=== PATIENT | male | born 1990 | race Caucasian/White ===

== ENCOUNTER 2018-09-04 07:52 | Emergency (ER) | payer BC, SELFPAY ==
[2018-09-04 07:53] VITALS: BP 147/90; PULSE 69; RESP 17; TEMP 36; O2SAT 95; BMI 33.9
--- NOTE | 2018-09-04 08:07 | ED.VISSUMM ---
- ER Visit Summary Date of Service: 09/04/18 Chief Complaint: Tick bite History of Present Illness: The patient is a 27 M who presents with a tick bite to his right lower abdomen that he noticed this morning. Patient states he did not notice it while he was in the shower this morning but noticed it while he was on his way to work. Patient states the pain is a stinging pain. Patient states it is worse with sitting in certain positions. Patient denies any fevers or chills. Patient denies any discharge or drainage. Physical Examination: Vital signs are stable. Patient is afebrile. Patient is in no acute distress. Oral mucosa is pink and moist. Heart was regular rate and rhythm. Lungs are clear and equal bilaterally. Abdomen is soft and nontender. Skin is warm dry. There is a tick noted in the right lower abdomen. There is some slight erythema surrounding the bite. The remaining physical exam is within normal limits. Emergency Department Course and Treatment: There was cleaned with alcohol prep pad. The tick was removed with direct pressure using hemostats. Patient tolerated the procedure well. Patient was instructed to keep the wound clean. Patient was instructed to follow-up with his primary care physician in 5-7 days. Patient understood and was agreeable with the plan. All questions were answered. Disposition: Discharge home Impression: Tick bite This note was generated with [employer] dictation software. It may contain incorrect words, spelling, and punctuation that were not noted in review of the chart prior to signing ED Disposition - Plan for ED Patient: Disposition: Home or Assisted Living Diagnosis: Tick bite of abdominal wall Instructions: ED Bite Tick No Abx Tx Referrals: Care Physician,No Primary [Primary Care Provider] -
--- NOTE | 2018-09-04 08:15 | ED.RN ---
REMOVAL OF TICK FROM RLQ ABDOMEN.
== END 2018-09-04 08:34 | disposition home or self-care (01) ==
PROVIDERS: Emergency Provider Emergency Medicine
DX: S30.861A Insect bite (nonvenomous) of abdominal wall, initial encounter (principal); W57.XXXA Bitten or stung by nonvenomous insect and other nonvenomous arthropods, initial encounter; Y93.9 Activity, unspecified; Y92.9 Unspecified place or not applicable
CPT/HCPCS: 99282

== ENCOUNTER 2019-08-08 19:29 | Emergency (ER) | payer BC, SELFPAY ==
[2019-08-08 19:30] VITALS: BP 126/61; PULSE 79; RESP 16; TEMP 36.9; O2SAT 97; BMI 75.5
--- NOTE | 2019-08-08 19:39 | EKG12_ITS ---
Test Reason : HEADINJURY Blood Pressure : / mmHG Vent. Rate : 080 BPM Atrial Rate : 080 BPM P-R Int : 144 ms QRS Dur : 086 ms QT Int : 356 ms P-R-T Axes : 016 042 014 degrees QTc Int : 410 ms Normal sinus rhythm Normal ECG Confirmed by FAWAD SANCHEZ, JESSIE ([id number]), editorial manager AIDAN POST ([id number]) on 08/09/2019 1:42:14 PM Referred By: DC/ES Confirmed By:JESSIE CELESTIN MD
--- NOTE | 2019-08-08 19:39 | CT_ITS ---
STUDY: CT BRAIN WITHOUT CONTRAST REASON FOR EXAM: Male, 28 years old. FELL IN HIT HEAD +LOC, LAC TOP OF HEAD, BOTTOM LIP RADIATION DOSAGE (If Supplied By Facility): CTDIvol = ( 44.99 ) mGy, DLP = ( 796.11 ) mGycm TECHNIQUE: Transaxial CT imaging of the brain was performed without administration of intravenous contrast material. Individualized dose optimization techniques were used for this CT. COMPARISON: No relevant priors. FINDINGS: Normal soft tissue structures. Normal calvarium. Normal size ventricles and extra-axial spaces for the patient''s age. Normal white matter tracts of the cerebral hemispheres. Normal basal ganglia and thalami. Normal brainstem. Normal cerebellum. There is no intracranial hemorrhage. There are no findings of an acute ischemic infarction. Large mucous retention cyst in right maxillary sinus. Minor mucosal thickening in right ethmoid air cells CT/Brain/Head without Contrast IMPRESSION: Normal unenhanced CT scan of the brain. Right maxillary and ethmoid sinus disease Electronically Signed: Hugo Foy MD at 20:09 EDT , Service support ,
--- NOTE | 2019-08-08 19:42 | ED.RN ---
NO OLD EKGS IN MUSE
[2019-08-08] MEDS: Diphth,Pertuss(Acell),Tet Vac 0.5 ML Vial IM (19:49)
[2019-08-08 20:21] LABS: Absolute Lymphocyte Count 3.21 X10^3/uL (0.83-4.51); Absolute Neutrophil Count 5.9 X10^3/uL (2.0-7.7); Basophil# 0.07 X10^3/uL; Basophil% 0.7 % (0-1); Eosinophil# 0.18 X10^3/uL; Eosinophils% 1.7 % (0-5); Hematocrit 47.8 % (40-54); Hemoglobin 16.3 g/dL (13.0-16.5); Lymphocyte # 3.21 X10^3/ul (4.0); Lymphocyte % 30.3 % (19-41); Mean Corp Hgb Conc 34.1 g/dL (32-36); Mean Corpuscular Hgb 30.8 pg (27.0-32.0); Mean Corpuscular Volume 90.4 fL (80-94); Mean Platelet Vol. 10.4 fl (6.2-12.0); Monocyte# 1.22 X10^3/uL; Monocyte% 11.5 % (0-10); NRBC Flagged by Analyzer 0 % (0-5); Neutrophil % 55.5 % (47-70); Platelet Count 287 K/mm3 (150-450); RBC Distribution Width CV 11.9 % (11.6-14.6); RBC Distribution Width SD 38.8 fl (35.1-43.9); Red Blood Count 5.29 M/mm3 (4.6-6.2); White Blood Count 10.6 K/mm3 (4.4-11.0)
[2019-08-08 20:30] LABS: Anion Gap 9 (5-15); BUN 13 mg/dL (7-18); BUN/Creat Ratio 11.2 RATIO (10-20); Calcium,Total 8.9 mg/dL (8.5-10.1); Chloride 107 mmol/L (98-107); Creatinine, Serum 1.16 mg/dL (0.70-1.30); EST Glomerular Filtration Rate 80 mL/min (>60); Est Glom Filt Rate - Afr Amer 97 mL/min (>60); Estimated Creatinine Clearance 87.08 ml/min; Glucose 88 mg/dL (74-106); Potassium 3.1 mmol/L (3.5-5.1); Sodium Level 143 mmol/L (136-145)
--- NOTE | 2019-08-08 21:12 | ED.VISSUMM ---
- ER Visit Summary Date of Service: 08/08/19 Chief Complaint: Passed out History of Present Illness: The patient is a 28 M who passed out at home. He hit his foot when he dropped a can and he bumped his head. He saw blood and passed out. He had a brief shaking episode and then regained consciousness spontaneously. He had this happen before once when he saw zone blood. He did not have incontinence or tongue biting. No prior history of seizures. No other significant medical history. Physical Examination: Afebrile and vital signs unremarkable. There is an abrasion to the top of his head. He has a lower lip abrasion as well. Otherwise his head and neck are atraumatic and nontender. Heart regular. Lungs clear. Abdomen soft. No focal or lateralizing neurologic abnormalities grossly. Test Results: EKG showed sinus rhythm at a rate of 80. No sign of ischemia or infarction pattern. CBC normal. BMP shows a potassium 3.1. Troponin normal. CT brain showed nothing acute. Emergency Department Course and Treatment: Patient likely had a syncopal episode. I do not believe this was a seizure. It was provoked. He did not have any other seizure activity. He had a similar episode in the past. Work-up, as above, was unremarkable. Wounds were cleaned. They did not require sutures. Tetanus was updated. Patient was doing well on reevaluation he discharged home. He was given seizure and syncope precautions. His potassium was 3.1. This was repleted. He will follow-up with his doctor for recheck. Treatment Plan: As above Disposition: Discharge Impression: Syncope, closed head injury, hypokalemia This note was generated with [employer] dictation software. It may contain incorrect words, spelling, and punctuation that were not noted in review of the chart prior to signing ED Disposition - Plan for ED Patient: Referrals: Ben Camacho MD [Primary Care Provider] -
--- NOTE | 2019-08-08 21:15 | ED.DEP ---
ED Disposition - Plan for ED Patient: Instructions: ED VAGAL SYNCOPE Referrals: Bne Camacho MD [Primary Care Provider] -
== END 2019-08-08 21:23 | disposition home or self-care (01) ==
PROVIDERS: Emergency Provider Emergency Medicine; PCP Family Medicine
DX: R55 Syncope and collapse (principal); S00.01XA Abrasion of scalp, initial encounter; S00.511A Abrasion of lip, initial encounter; W22.8XXA Striking against or struck by other objects, initial encounter; Y93.89 Activity, other specified; Y92.009 Unspecified place in unspecified non-institutional (private) residence as the place of occurrence of the external cause; E87.6 Hypokalemia
CPT/HCPCS: 36415; 70450; 80048; 84484; 85025; 90471; 90715; 93005; 99284; A4216

== ENCOUNTER 2024-04-12 09:48 | Emergency (ER) | payer BC, SELFPAY ==
[2024-04-12 09:49] VITALS: BP 127/90; PULSE 74; RESP 16; TEMP 37; O2SAT 98; BMI 36.6
--- NOTE | 2024-04-12 10:16 | CT_ITS ---
STUDY: CT BRAIN WITHOUT CONTRAST REASON FOR EXAM: Male, 33 years old. syncope RADIATION DOSAGE (If Supplied By Facility): CTDIvol = ( 44.99 ) mGy, DLP = ( 829.85 ) mGycm TECHNIQUE: Transaxial CT imaging of the brain was performed without administration of intravenous contrast material. Individualized dose optimization techniques were used for this CT. COMPARISON: No relevant priors. FINDINGS: Normal soft tissue structures. Normal calvarium. Normal size ventricles and extra-axial spaces for the patient''s age. Normal white matter tracts of the cerebral hemispheres. Normal basal ganglia and thalami. Normal brainstem. Normal cerebellum. There is no intracranial hemorrhage. There are no findings of an acute ischemic infarction. Right maxillary sinus retention cyst. CT/Brain/Head without Contrast IMPRESSION: Normal unenhanced CT scan of the brain. Electronically Signed: Cortez Herrera DO at 11:09 EST ,
--- NOTE | 2024-04-12 10:17 | RAD_ITS ---
INDICATION: syncope EXAMINATION/TECHNIQUE: X-RAY - XR Chest 2 Views COMPARISON: April 10, 2016 FINDINGS: LINES/DEVICES: None. LUNGS: No consolidation, edema or effusion. No pneumothorax. MEDIASTINUM AND CARDIOVASCULAR STRUCTURES: Cardiac silhouette not enlarged. Central airways and mediastinal contour are unremarkable. BONES AND SOFT TISSUES: Unremarkable. RAD/Chest PA and Lateral IMPRESSION: No radiographic evidence of acute cardiopulmonary disease. Electronically Signed: Cortez Herrera DO at 11:12 [facility] ,
--- NOTE | 2024-04-12 10:18 | EX.ED.DYSGE1 ---
HPI History of Present Illness Chief Complaint: Syncope Narrative Narrative: Chief complaint and HPI: Syncope. 33-year-old male with no significant past medical history presents for evaluation after a syncopal episode. Patient states that this morning he woke up with a charley horse in his left calf. He states that he quickly rolled out of bed and jumped over a dog gate. He states immediately after he got lightheaded, stumbled, fell into the wall, and woke up on the ground. Significant other witnessed event. Patient was unconscious for multiple seconds before regaining consciousness. He is unsure if he hit his head. He denies any fever, chills, URI symptoms, neck pain, vision changes, headache, chest pain, shortness of breath, abdominal pain, nausea, vomiting, diarrhea, dysuria. Patient states he last ate 12 hours ago prior to the episode. He states he has been eating and drinking well. Patient states that he has had syncope in the past with unknown cause. Denies any weakness numbness or tingling. Denies any leg swelling, recent surgery, travel. Review of systems: See HPI Medications: As listed on the chart Allergies: As listed on the chart PFSH: Per chart Vital signs: As listed on the chart. Reviewed. Physical exam: Gen: A&O x3, NAD Head: Normocephalic, atraumatic Eyes: No sclera icterus, conjunctiva clear, PERRL, EOMI ENT: Moist mucous membranes, no facial trauma Neck: Trachea midline, No JVD, full range of motion, nontender CV: RRR, no murmurs, no peripheral edema Resp: Lungs CTA BL, no w/r/c GI: Abd soft, non-distended, non-tender, no r/r/g Musc: Full ROM, no deformity, strength +5/5 in all extremities Skin: Warm, dry, intact Neuro: Alert, oriented, grossly intact, sensation intact, no focal deficits Psych: Cooperative, appropriate mood and affect [facility] Home Medications ?Medication ?Instructions ?Recorded ?Last Taken ?Type NK 09/04/18 Unknown History Allergy/AdvReac Type Severity Reaction Status Date / Time No Known Allergies Allergy Verified 04/12/24 09:49 Social History Smoking Status: Never smoker EXAM Physical Exam Const Vital Signs: 04/12/24 09:49 04/12/24 10:29 04/12/24 10:38 Temperature 98.6 F Temperature Source Oral Pulse Rate 74 Pulse Rate [Lying] 67 Pulse Rate [Sitting (for 1 minute prior to obtaining)] 66 Pulse Rate [Standing (for 1 minute prior to obtaining)] 86 Respiratory Rate 16 Respiratory Pattern Normal Blood Pressure 127/90 H Blood Pressure [Lying] 122/70 H Blood Pressure [Sitting (for 1 minute prior to obtaining)] 119/78 Blood Pressure [Standing (for 1 minute prior to obtaining)] 112/75 Blood Pressure Mean 102 Blood Pressure Mean [Lying] 87 Blood Pressure Mean [Sitting (for 1 minute prior to obtaining)] 91 Blood Pressure Mean [Standing (for 1 minute prior to obtaining)] 87 Pulse Ox 98 Oxygen Delivery Method Room Air MDM MDM MDM Narrative Medical decision making narrative: 33-year-old male with no significant past medical history presents for evaluation of syncopal episode. Differential diagnosis includes but is not limited to orthostatic hypotension, vasovagal episode, dehydration, electrolyte abnormality, hypoglycemia. Suspect less likely intracranial abnormality, ACS, PE. Patient is currently asymptomatic. Vitals are stable. No complaints. Syncope workup ordered. EKG and chest x-ray reviewed see below. CBC without leukocytosis or anemia. D-dimer unremarkable. BMP relatively unremarkable. Troponin unremarkable. Given that patient is not having any chest pain I do not see a reason for delta. UA shows some ketones which can be seen in mild dehydration. Otherwise unremarkable. CT head without any acute abnormality. At this point in time, no clear etiology for patient's symptoms. May be secondary to mild dehydration with quick movement. May have been a vasovagal response. Patient was updated of all his results. He is currently asymptomatic. Ambulated without difficulty. Patient is stable to discharge home. Follow-up with PCP. Return precautions explained. EKG: Interpreted by me/EM physician: Normal sinus rhythm with premature complexes. Heart rate 79. No acute ischemic changes. Diagnostic: Interpreted by me/EM physician: Chest x-ray without pneumonia, effusion, cardiomegaly, pneumothorax Impression: 1. Syncope 2. Mild dehydration Lab Data Labs: Laboratory Results - last 24 hr 04/12/24 04/12/24 10:25 10:47 WBC 8.4 RBC 5.42 Hgb 16.5 Hct 47.1 MCV 86.9 MCH 30.4 MCHC 35.0 RDW Std Deviation 37.4 RDW Coeff of [place]so[place] 11.8 Plt Count 302 MPV 9.9 Immature Gran % (Auto) 0.200 Neut % (Auto) 73.2 H Lymph % (Auto) 16.8 L Cata[place] % (Auto) 8.0 Eos % (Auto) 1.2 Baso % (Auto) 0.6 Absolute Neuts (auto) 6.1 Absolute Lymphs (auto) 1.40 Nucleated RBC % 0 D-Dimer Quant (PE/DVT) < 0.27 L Sodium 135 L Potassium 4.0 Chloride 106 Carbon Dioxide 24.0 Anion Gap 6 BUN 11 Creatinine 1.13 Estim Creat Clear Calc 102.91 Est GFR (MDRD) Af Amer 97 Est GFR (MDRD) Non-Af 80 BUN/Creatinine Ratio 9.7 L Glucose 119 H Calcium 9.0 Troponin I High Sens 3 Urine Color Yellow Urine Clarity Clear Urine pH 6.5 Ur Specific [place] 1.005 Urine Protein Negative Urine Glucose (UA) Normal Urine Ketones 5 H Urine Occult Blood Negative Urine Nitrite Negative Urine Bilirubin Negative Urine Urobilinogen Normal Ur Leukocyte Esterase Negative Urine RBC 0 SEEN Urine WBC 0 SEEN Ur Squamous Epith Cells 0 SEEN Urine Bacteria 0 SEEN Urine Mucus 0 SEEN Radiography Diagnostic Testing: Clinical Impression(s) from Imaging Studies Brain CT 04/12/24 10:16 IMPRESSION: Normal unenhanced CT scan of the brain. Electronically Signed: Cortez Herrera DO at 11:09 EST Reading Location ID and State: [facility] / [place] Tel [phone], Service support , Chest X-Ray 04/12/24 10:17 IMPRESSION: No radiographic evidence of acute cardiopulmonary disease. Electronically Signed: Cortez Herrera DO at 11:12 EST , Discharge Plan Triage Chief Complaint: Syncope ED Provider: Joaquim Wilson Dx/Rx/DC Orders Prescriptions: No Action NK Primary Care Provider: Ben Camacho Referrals: Ben Camacho MD [Primary Care Provider] - Print Language: Lao
[2024-04-12 10:33] LABS: Absolute Neutrophil Count 6.1 X10^3/uL (2.0-7.7); Basophil# 0.05 X10^3/uL; Basophil% 0.6 % (0-1); Eosinophils% 1.2 % (0-5); Hematocrit 47.1 % (40-54); Hemoglobin 16.5 g/dL (13.0-16.5); Lymphocyte % 16.8 % (19-41); Mean Corpuscular Hgb 30.4 pg (27.0-32.0); Mean Corpuscular Volume 86.9 fL (80-94); Mean Platelet Vol. 9.9 fl (6.2-12.0); Monocyte# 0.67 X10^3/uL; NRBC Flagged by Analyzer 0 % (0-5); Neutrophil # 6.11 X10^3/uL (2.7-7.7); Neutrophil % 73.2 % (47-70); Platelet Count 302 K/mm3 (150-450); RBC Distribution Width CV 11.8 % (11.6-14.6); RBC Distribution Width SD 37.4 fl (35.1-43.9); Red Blood Count 5.42 M/mm3 (4.6-6.2); White Blood Count 8.4 K/mm3 (4.4-11.0)
[2024-04-12 10:38] VITALS: BP 112/75; BP 119/78; BP 122/70; PULSE 66; PULSE 67; PULSE 86
[2024-04-12 10:47] LABS: D-Dimer Quantitative (DVT/PE) < 0.27 FEU/ug/m (0.27-0.49)
[2024-04-12 10:51] LABS: Bacteria 0 SEEN /hpf (None Seen); Mucous, Urine 0 SEEN /hpf (<or=2+); Red Blood Cells-Urine 0 SEEN /hpf (0-5); Squamous Epithelial Cells - UA 0 SEEN /hpf (0-5); White Blood Cells 0 SEEN /hpf (0-5)
[2024-04-12 10:57] LABS: Anion Gap 6 (5-15); BUN 11 mg/dL (7-18); BUN/Creat Ratio 9.7 RATIO (10-20); Chloride 106 mmol/L (98-107); Creatinine, Serum 1.13 mg/dL (0.70-1.30); EST Glomerular Filtration Rate 80 mL/min (>60); Est Glom Filt Rate - Afr Amer 97 mL/min (>60); Estimated Creatinine Clearance 102.91 ml/min; Glucose 119 mg/dL (74-106); Sodium Level 135 mmol/L (136-145); Troponin-I HS 3 pg/mL (3.0-78.0)
[2024-04-12 11:11] LABS: Color, Urine Yellow (Yellow); Glucose, Dipstick Normal (Normal); Ketone-Dipstick 5 mg/dl (Negative); Leukocyte Esterase-Dipstick Negative /ul (Negative); Nitrite-Dipstick Negative (Negative); Occult Blood-Urine Negative /ul (Negative); Protein-Dipstick Negative (Negative); Specific Gravity, Urine 1.005 (1.002-1.030); Urine Bilirubin Dipstick Negative (Negative); Urine Clarity Clear (Clear); Urine Urobilinogen Normal (Normal); Urine pH 6.5 (5.0 - 8.0)
[2024-04-12 11:49] VITALS: BP 107/84; PULSE 62; RESP 15; O2SAT 94
[2024-04-12 11:53] VITALS: BP 107/84; PULSE 60; RESP 17; TEMP 36.7; O2SAT 96
== END 2024-04-12 11:59 | disposition home or self-care (01) ==
PROVIDERS: Emergency Provider Surgery; PCP Family Medicine; Visit Provider Surgery
DX: R55 Syncope and collapse (principal); E86.0 Dehydration
CPT/HCPCS: 70450; 71046; 80048; 81001; 84484; 85025; 85379; 93005; 99284; A4216